=== PATIENT | female | born 1970 | race Caucasian/White ===

== ENCOUNTER 2017-02-21 22:29 | Emergency (ER) | payer MEDICAID ==
[2017-02-21 23:11] LABS: BASOPHILS 0.4 % (0-2); EOSINOPHILS 7.5 % (0-7); HEMATOCRIT 38.9 % (36.0-48.0); HEMOGLOBIN 13.1 g/dL (12-16); IMMATURE GRANULOCYTES 0.1 % (0-5); LYMPHOCYTES 36.9 % (15-50); MCH 32.6 pg (26.0-34.0); MCHC 33.7 g/dL (31.0-37.0); MCV 96.8 fL (80.0-100.0); MEAN PLATELET VOLUME 9.9 fL (7.4-10.4); MONOCYTES 7.6 % (2-11); NEUTROPHILS 47.5 % (40-80); PLATELET COUNT 302 10x3/uL (130-400); RBC 4.02 10x6/uL (4.00-5.40); RDW 12.7 % (11.5-14.5); WBC 6.8 10x3/uL (4.8-10.8)
[2017-02-21 23:26] LABS: ALBUMIN 3.5 g/dL (3.4-5.0); ALKALINE PHOSPHATASE 66 U/L (46-116); ALT (SGPT) 20 U/L (10-68); CALC OSMOLALITY 284 mosm/kg (275-300); CARBON DIOXIDE 24.3 mmol/L (21.0-32.0); CHLORIDE - SERUM 109 mmol/L (98-107); CREATININE - SERUM 0.9 mg/dL (0.6-1.3); GLUCOSE 118 mg/dL (74-106); POTASSIUM - SERUM 3.5 mmol/L (3.5-5.1); PROTEIN - SERUM 7.1 g/dL (6.4-8.2); SODIUM 142 mmol/L (136-145); UREA NITROGEN 16 mg/dL (7-18); eGFR NON AFRICAN AMERICAN 70 mL/min (90-120)
[2017-02-21 23:37] LABS: CKMB 1.1 U/L (0.0-3.6); CREATINE KINASE 173 UL (21-215)
[2017-02-21 23:40] LABS: TROPONIN-I < 0.017 ng/mL (0.000-0.060)
== END 2017-02-22 00:48 | disposition home or self-care (01) ==
LOC: D.ER 22:29
PROVIDERS: Emergency Medicine
DX: R07.9 Chest pain, unspecified (principal); R05 Cough; J45.909 Unspecified asthma, uncomplicated; K21.9 Gastro-esophageal reflux disease without esophagitis; M54.16 Radiculopathy, lumbar region; R00.1 Bradycardia, unspecified

== ENCOUNTER 2017-06-06 23:33 | Emergency (ER) | payer MEDICAID | END 2017-06-07 01:01 | disposition home or self-care (01) | LOC: D.ER 23:33 | DX: J44.1 Chronic obstructive pulmonary disease with (acute) exacerbation (principal) ==

== ENCOUNTER → 2018-04-04 10:05 | Outpatient (CLI) | payer OTHER | END | disposition home or self-care (01) | LOC: D.RT 10:00 | DX: Z02.71 Encounter for disability determination (principal) ==

== ENCOUNTER → 2018-08-17 09:45 | Outpatient (CLI) | payer MEDICAID | END | disposition home or self-care (01) | LOC: D.RT 09:45 | DX: J44.9 Chronic obstructive pulmonary disease, unspecified (principal) ==

== ENCOUNTER → 2019-03-06 17:30 | Outpatient (CLI) | payer MEDICAID ==
[~2019-03-06 17:30] MED LIST: ATIVAN2 MG PO; VISTARIL25 MG PO; VOLTAREN75 MG PO; ZOLOFT100 MG PO; [UNRECOGNIZED DRUG - REMARK]
[2019-03-06 18:49] LABS: BASOPHILS 0.6 % (0-2); EOSINOPHILS 3.7 % (0-7); HEMOGLOBIN 12.5 g/dL (12-16); IMMATURE GRANULOCYTES 0.1 % (0-5); LYMPHOCYTES 23.8 % (15-50); MCH 31.1 pg (26.0-34.0); MCHC 33.8 g/dL (31.0-37.0); MEAN PLATELET VOLUME 10.6 fL (7.4-10.4); MONOCYTES 6.9 % (2-11); NEUTROPHILS 64.9 % (40-80); PLATELET COUNT 331 10x3/uL (130-400); RBC 4.02 10x6/uL (4.00-5.40); RDW 13.8 % (11.5-14.5); WBC 6.8 10x3/uL (4.8-10.8)
== END | disposition home or self-care (01) ==
LOC: D.LABREF 17:30
PROVIDERS: ATTEND Internal Medicine Pulmonary Disease
DX: J44.9 Chronic obstructive pulmonary disease, unspecified (principal)

== ENCOUNTER 2019-04-07 16:24 | Emergency (ER) | payer MEDICAID ==
[2019-04-07] MEDS ORDERED: [UNRECOGNIZED DRUG - REMARK] (16:33)
[2019-04-07] MEDS ORDERED: ZOLOFT100 MG PO (16:34)
[2019-04-07] MEDS ORDERED: ATIVAN2 MG PO (16:34)
[2019-04-07] MEDS ORDERED: VISTARIL25 MG PO (17:08)
[2019-04-07] MEDS ORDERED: VOLTAREN75 MG PO (17:08)
[2019-04-07 18:10] VITALS: BP 114/54
== END 2019-04-07 18:11 | disposition home or self-care (01) ==
LOC: D.ER 16:24
DX: F41.9 Anxiety disorder, unspecified (principal); M54.5 Low back pain; M54.30 Sciatica, unspecified side

== ENCOUNTER 2019-06-11 10:47 | Inpatient (IN) | payer MEDICAID ==
[2019-06-11] VITALS (13 sets, daily range): BP systolic 92–145; BP diastolic 54–98; BMI 27.7
[~2019-06-11] VITALS: Ht 144.8 cm; Wt 54.5 kg
[2019-06-11 11:54] LABS: CALC OSMOLALITY 289 mosm/kg (275-300); CALCIUM 9.4 mg/dL (8.5-10.1); CARBON DIOXIDE 28.3 mmol/L (21.0-32.0); CHLORIDE - SERUM 107 mmol/L (98-107); CREATININE - SERUM 1.1 mg/dL (0.6-1.3); GLUCOSE 136 mg/dL (74-106); SODIUM 143 mmol/L (136-145); UREA NITROGEN 22 mg/dL (7-18); eGFR NON AFRICAN AMERICAN 55 mL/min (90-120)
[2019-06-11 12:07] LABS: BASOPHILS 0.1 % (0-2); EOSINOPHILS 0.6 % (0-7); HEMATOCRIT 42.3 % (36.0-48.0); HEMOGLOBIN 13.4 g/dL (12-16); IMMATURE GRANULOCYTES 0.3 % (0-5); LYMPHOCYTES 4.8 % (15-50); MCH 31.3 pg (26.0-34.0); MCHC 31.7 g/dL (31.0-37.0); MCV 98.8 fL (80.0-100.0); MEAN PLATELET VOLUME 9.9 fL (7.4-10.4); MONOCYTES 5.7 % (2-11); NEUTROPHILS 88.5 % (40-80); PLATELET COUNT 292 10x3/uL (130-400); RBC 4.28 10x6/uL (4.00-5.40); RDW 13.5 % (11.5-14.5); WBC 15.6 10x3/uL (4.8-10.8)
[2019-06-11 12:12] LABS: ALBUMIN 3.8 g/dL (3.4-5.0); ALKALINE PHOSPHATASE 80 U/L (46-116); ALT (SGPT) 26 U/L (10-68); BILIRUBIN - TOTAL 0.29 mg/dL (0.2-1.3); CKMB 3.3 U/L (0.0-3.6); CREATINE KINASE 216 UL (21-215); MAGNESIUM - SERUM 2.3 mg/dL (1.8-2.4); PROTEIN - SERUM 6.9 g/dL (6.4-8.2); THYROID STIMULATING HORMONE 1.76 uIU/mL (0.36-3.74); TROPONIN-I 0.031 ng/mL (0.000-0.060)
[2019-06-11 12:17] LABS: APTT 27.1 SECONDS (22.8-39.4)
[2019-06-11 12:21] LABS: PROTIME 12.7 SECONDS (11.6-15.0)
[2019-06-11 12:29] LABS: APPEARANCE CLEAR (CLEAR); BILIRUBIN NEGATIVE (NEGATIVE); COLOR STRAW (YELLOW); GLUCOSE 1000 mg/dL (NEGATIVE); KETONE NEGATIVE (NEGATIVE); NITRITE NEGATIVE (NEGATIVE); PROTEIN 1+ mg/dL (NEGATIVE); UROBILINOGEN NORMAL (NORMAL)
[2019-06-11 12:33] LABS: UDS - AMPHET NEGATIVE QUAL (NEGATIVE); UDS - BARB NEGATIVE QUAL (NEGATIVE); UDS - BENZO NEGATIVE QUAL (NEGATIVE); UDS - COCAINE NEGATIVE QUAL (NEGATIVE); UDS - OPIATE NEGATIVE QUAL (NEGATIVE); UDS - PCP NEGATIVE QUAL (NEGATIVE); UDS - THC NEGATIVE QUAL (NEGATIVE)
[2019-06-11 12:34] LABS: BACTERIA MODERATE /hpf (NEGATIVE); EPITHELIAL CELLS NSEEN /hpf (0-5); RED CELLS - URINE 0-5 /hpf (0-5)
[2019-06-11 12:35] LABS: AMORPHOUS SEDIMENT >1+ /lpf (NONE SEEN)
--- NOTE | 2019-06-11 13:19 | NUR ---
NS BOLUS COMPLETED.
--- NOTE | 2019-06-11 14:45 | NUR ---
PT TO FLOOR FROM ER. IV TO RIGHT HAND NOT WORKING. IV STARTED TO LEFT FOREARM. NS INFUSING. PT VOMITTING. DR SARAVIA ROUNDED. WILL CONTINUE TO MONITOR.
--- NOTE | 2019-06-11 15:59 | NUR ---
PT ATTEMPTED TO TAKE ORAL MEDICATIONS. US TECH IN TO DO ULTRASOUND ON ABD. VSS. WILL CONTINUE TO MONITOR.
--- NOTE | 2019-06-11 17:25 | NUR ---
PT CONTINUES TO COMPLAIN OF NAUSEA. WAS ABLE TO USE THE BEDPAN. DID SPILL SOME URINE ON LINENS. CHANGED. PT CLEANED. VSS. WILL CONTINUE TO MONITOR.
[2019-06-11 19:12] LABS: CKMB 6.5 U/L (0.0-3.6); CREATINE KINASE 279 UL (21-215); TROPONIN-I 0.053 ng/mL (0.000-0.060)
--- NOTE | 2019-06-11 19:30 | NUR ---
PT AROUSES EASILY, VOICES NEEDS, LUNGS CLEAR, O2 @ 2L VIA N/C, LEFT PIV INTACT WITH NS @ 100 CC/HR, NO C/O @ THIS TIME, VITALS STABLE
--- NOTE | 2019-06-11 21:30 | NUR ---
RESTING QUIETLY WITH EYES CLOSED, WILL CONT TO MONITOR
--- NOTE | 2019-06-11 23:15 | NUR ---
PT SLEEPING ON RIGHT SIDE, AROUSES EASILY, C/O HEADACHE, OFFERED TYLENOL, NO DISTRESS NOTED
[2019-06-12] VITALS (13 sets, daily range): BP systolic 96–116; BP diastolic 57–89; Ht 144.8 cm; Wt 54.5 kg
[2019-06-12 00:25] LABS: CKMB 4.9 U/L (0.0-3.6); CREATINE KINASE 239 UL (21-215); TROPONIN-I 0.017 ng/mL (0.000-0.060)
--- NOTE | 2019-06-12 01:15 | NUR ---
PT C/O HEADACHE, GIVEN TYLENOL PO, VITALS STABLE
--- NOTE | 2019-06-12 03:00 | NUR ---
PT RESTING QUIETLY, AROUSES EASILY WITH NO DISTRESS, VITALS STABLE
[2019-06-12 05:29] LABS: BASOPHILS 0 % (0-2); EOSINOPHILS 0 % (0-7); HEMATOCRIT 36.1 % (36.0-48.0); HEMOGLOBIN 11.7 g/dL (12-16); IMMATURE GRANULOCYTES 0.1 % (0-5); LYMPHOCYTES 7.4 % (15-50); MCH 30.9 pg (26.0-34.0); MCHC 32.4 g/dL (31.0-37.0); MEAN PLATELET VOLUME 9.6 fL (7.4-10.4); MONOCYTES 0.7 % (2-11); NEUTROPHILS 91.8 % (40-80); PLATELET COUNT 267 10x3/uL (130-400); RBC 3.79 10x6/uL (4.00-5.40); RDW 13.4 % (11.5-14.5)
--- NOTE | 2019-06-12 05:30 | NUR ---
PT AROUSES EASILY WITH NO C/O, VITALS STABLE, WILL CONT TO MONITOR
[2019-06-12 05:48] LABS: MCV 95.3 fL (80.0-100.0)
[2019-06-12 06:12] LABS: ALBUMIN 3.2 g/dL (3.4-5.0); ALKALINE PHOSPHATASE 68 U/L (46-116); ALT (SGPT) 29 U/L (10-68); BILIRUBIN - TOTAL 0.22 mg/dL (0.2-1.3); CALC OSMOLALITY 289 mosm/kg (275-300); CALCIUM 8.3 mg/dL (8.5-10.1); CARBON DIOXIDE 22.8 mmol/L (21.0-32.0); CHLORIDE - SERUM 110 mmol/L (98-107); CKMB 4.8 U/L (0.0-3.6); CREATINE KINASE 234 UL (21-215); CREATININE - SERUM 0.9 mg/dL (0.6-1.3); GLUCOSE 156 mg/dL (74-106); MAGNESIUM - SERUM 1.8 mg/dL (1.8-2.4); POTASSIUM - SERUM 4.1 mmol/L (3.5-5.1); PROTEIN - SERUM 6.7 g/dL (6.4-8.2); SODIUM 143 mmol/L (136-145); UREA NITROGEN 17 mg/dL (7-18); eGFR NON AFRICAN AMERICAN 70 mL/min (90-120)
[2019-06-12 06:15] LABS: TROPONIN-I < 0.017 ng/mL (0.000-0.060)
--- NOTE | 2019-06-12 07:00 | NUR ---
REPORT RECIEVED. ASSESSMENT COMPLETE PER FLOW SHEET. VSS. NO NEW CHANGES PT RESTING COMFORTABLY WILL CONTINUE TO MONITOR
--- NOTE | 2019-06-12 09:15 | NUR ---
dr blackwood at bedside new orders recieved
--- NOTE | 2019-06-12 11:43 | NUR ---
PT/OT AT BEDSIDE GIVEN UDPATE
--- NOTE | 2019-06-12 16:27 | NUR ---
report given to marly singh on transfer
--- NOTE | 2019-06-12 17:10 | NUR ---
RECIEVED PT FROM ICU. PT HAS A R AC PIV INFUSING NS @ 75 AND SECONDARY ANTIBIOTICS INFUSING AT THIS TIME. PT IS SITTING UP EATTING DINNER. RR EVEN AND UNLBAORED. BED LOCKED AND IN LOWEST POSITION, CALL LIGHT WITHIN REACH. WILL CTM
--- NOTE | 2019-06-12 19:00 | NUR ---
EVENING ROUNDS COMPLETE. PT LAYING IN BED. NO SIGNS OF DISTRESS. AAOX4. PT DENIES ANY NEEDS AT THIS TIME. CL IN REACH, BED IN LOWEST POSITION.
--- NOTE | 2019-06-12 19:37 | MORECARE ---
CASE MANAGEMENT DISCHARGE SUMMARY PATIENT: CHRISTIANO STINSON UNIT: [id number] ADM DATE: 06/11/19 AGE: 49 : 66 SEX: F ROOM/BED: D.2104 AUTHOR: SHIMA TORRE PHYSICIAN: REFERRING PHYSICIAN: VITOR SARAVIA MD DATE OF SERVICE: 06/12/19 Discharge Plan Patient Name: CHRISTIANO STINSON Facility: [facility]:[place] : 1970 Planned Disposition: Home Anticipated Discharge Date: Discharge Date: Expected LOS: Initial Reviewer: [email or web address] Initial Review Date: 06/12/2019 Generated: 06/12/19 8:36 pm Patient Name: CHRISTIANO STINSON Page [id number] at 1937 All edits/amendments must be made on the electronic document DICTATION DATE: 06/12/191935 SERVICES EXECUTIVE: ALVERTO 06/12/191935 RPT#: [id number] DC DATE: STATUS: ADM IN [facility] [address] [place] [address] END OF REPORT
--- NOTE | 2019-06-12 19:44 | MORECARE ---
CASE MANAGEMENT DISCHARGE SUMMARY PATIENT: CHRISTIANO STINSON UNIT: [id number] ADM DATE: 06/11/19 AGE: 49 : 66 SEX: F ROOM/BED: D.9618 AUTHOR: YELITZA,DOC PHYSICIAN: REFERRING PHYSICIAN: VITOR SARAVIA MD DATE OF SERVICE: 06/12/19 Discharge Plan Patient Name: CHRISTIANO STINSON Facility: [facility]:[place] : 1970 Planned Disposition: Home Anticipated Discharge Date: Discharge Date: Expected LOS: Initial Reviewer: [id number] Initial Review Date: 06/12/2019 Generated: 06/12/19 8:43 pm Comments DCP- Discharge Planning Updated by [email or web address]: Nely Lagunas on 06/12/19 6:[address] Patient Name: CHRISTIANO STINSON Admission Status: ER Accout number: [id number] Admission Date: 06-11-2019 : 1970 Admission Diagnosis: Attending: MANJIT, Current LOS: 1 Anticipated DC Date: Planned Disposition: Home Primary Insurance: [place] PRIVATE OPTIONS [place] Discharge Planning Comments: CM met with patient to complete initial dc planning assessment. CM educated patient on the CM role and verbal consent given by patient to complete assessment. Patient lives at home with her fianc? where she is independent with her care. At discharge patient plans to return home and feels this is a safe discharge. CM discussed availability of home health, rehab services, and medical equipment. Her family will drive her home upon discharge. Patient has a nebulizer and home o2 ( [place]e home patient ) Patient denied known discharge needs at this time. CM will continue to follow and will assist as needed with dc plans/needs. Weighmaster Lead: Nely Lagunas DCPIA - Discharge Planning Initial Assessment Updated by [email or web address]: Nely Lagunas on 06/12/19 7:37 pm * Is the patient Alert and Oriented? Yes * How many steps to enter\exit or inside your home? * PCP CALIXTO * Pharmacy [facility] * Preadmission Environment Home with Family * ADLs Independent * Other Equipment NEBULIZER, HOME & PORTABLE 02 * List name and contact numbers for known caregivers / representatives who currently or will assist patient after discharge: PATSY MORRO - [facility] - [phone] MARYBETHSOFIA MONTEJO [facility]- [phone] REYNALDO HOOKER - [facility] - [phone] HARV[facility]ER [facility] - NO PHONE * Verbal permission to speak to the caregivers and representatives has been obtained from the patient. Yes * Community resources currently utilized None * Additional services required to return to the preadmission environment? No * Can the patient safely return to the preadmission environment? Yes * Has this patient been hospitalized within the prior 30 days at any hospital? No Last DP export: 06/12/19 6:37 Patient Name: CHRISTIANO STINSON Page [phone] at 1944 All edits/amendments must be made on the electronic document DICTATION DATE: 06/12/191942 EDGER MACHINE SETTER: ALVERTO 06/12/191942 RPT#: [id number] DC DATE: STATUS: ADM IN [facility] [address] [place] [address] END OF REPORT
--- NOTE | 2019-06-12 22:38 | NUR ---
PT IV TO L FOREARM INFILTRATED. REMOVED, TIP INTACT. NEW 20 G PIV STARTED IN R FOREARM AT THIS TIME. PT TOLERATED WELL. CL IN REACH, BED IN LOWEST POSITION.
[2019-06-13] VITALS: BP 122/80
[2019-06-13 04:00] VITALS: BP 105/65
[2019-06-13 04:26] LABS: BASOPHILS 0 % (0-2); EOSINOPHILS 0 % (0-7); HEMATOCRIT 35.8 % (36.0-48.0); HEMOGLOBIN 11.2 g/dL (12-16); IMMATURE GRANULOCYTES 0.3 % (0-5); LYMPHOCYTES 6.8 % (15-50); MCH 30.4 pg (26.0-34.0); MCHC 31.3 g/dL (31.0-37.0); MEAN PLATELET VOLUME 10.3 fL (7.4-10.4); MONOCYTES 3.4 % (2-11); NEUTROPHILS 89.5 % (40-80); PLATELET COUNT 301 10x3/uL (130-400); RBC 3.69 10x6/uL (4.00-5.40); RDW 13.8 % (11.5-14.5)
[2019-06-13 04:57] LABS: ALBUMIN 3.2 g/dL (3.4-5.0); ALKALINE PHOSPHATASE 63 U/L (46-116); ALT (SGPT) 30 U/L (10-68); BILIRUBIN - TOTAL 0.28 mg/dL (0.2-1.3); CALC OSMOLALITY 288 mosm/kg (275-300); CALCIUM 8.5 mg/dL (8.5-10.1); CARBON DIOXIDE 27.7 mmol/L (21.0-32.0); CHLORIDE - SERUM 110 mmol/L (98-107); CREATININE - SERUM 0.8 mg/dL (0.6-1.3); GLUCOSE 131 mg/dL (74-106); MAGNESIUM - SERUM 1.9 mg/dL (1.8-2.4); POTASSIUM - SERUM 4.3 mmol/L (3.5-5.1); PROTEIN - SERUM 6.6 g/dL (6.4-8.2); SODIUM 144 mmol/L (136-145); eGFR NON AFRICAN AMERICAN 80 mL/min (90-120)
[2019-06-13 05:08] LABS: UREA NITROGEN 12 mg/dL (7-18)
--- NOTE | 2019-06-13 07:59 | NUR ---
REPORT RECEIVED. WILL CONTINUE WITH POC. PT CURRENTLY RESTING ON RIGHT SIDE. CALL LIGHT W/I REACH. RR EVEN AND UNLABORED ON 2L 02. NS INFUSING @75ML/HR VIA R.FOR PIV. NO S/S OF DISTRESS NOTED. PT DENIES ANY NEEDS. WILL CTM.
[2019-06-13 09:18] VITALS: BP 117/68
--- NOTE | 2019-06-13 11:44 | NUR ---
OT NOTE: REPORTS IMPROVEMENT WITH HEADACHE. BED MOB WITH SPV; ABLE TO FLOYD GOWN WITH SET UP; SIMPLE GROOMING WITH SET UP; ABLE TO FLOYD SOCKS WITH MIN ASSIST; TOILETING WITH MIN ASSIST. AMB WITH MIN ASSIST AND ASSIST FOR 02 AND IV POLE. PT AMB APPROX 60-70 FT. REPORTED THAT SHE WAS GETTING DIZZY MIDWAY IN WALK. ENCOURAGED TO TAKE SLOW DEEP BREATHS. REQUIRED 2 STANDING REST BREAKS DURING AMBULATION. INCREASED SOB WHILE WALKING. UP IN CHAIR WITH CGA. EDUCATED ON EXS TO PERFORM WHILE UP IN CHAIR TO ASSIST WITH FUNCTIONAL ENDURANCE. CRESCENCIO CARPENTER, OTR/L
[2019-06-13 12:00] VITALS: BP 111/65
[2019-06-13] MEDS ORDERED: ALBUTEROL SULF8.5 GM INH (14:17)
[2019-06-13] MEDS ORDERED: IPRAT-ALBUT 0.5-3 ML UPD (14:17)
--- NOTE | 2019-06-13 15:21 | NUR ---
PREVIOUS PIV INFILTRATED. REMOVED PIV WITH CATHETER TIP FULLY INTACT. INITIATED NEW PIV TO THE RIGHT FOREARM 22GA X1 ATTEMPT. PT TOLERATED WELL. FLUSHED WITH 10ML NS TO CONFIRM PATENCY. BEGAN INFUSION OF ABX. WILL CTM.
--- NOTE | 2019-06-13 15:57 | NUR ---
I have reviewed this patient and I concur with the Shift Assessment completed by the Licensed Practical Nurse today this shift.
[2019-06-13 18:04] VITALS: BP 123/75
[2019-06-13 20:00] VITALS: BP 113/65
--- NOTE | 2019-06-13 20:00 | NUR ---
PT RESTING IN BED ALERT AND ORIENTED X4. RR EVEN AND UNLABORED. PT ON 2L O2 @ 94%. NO S/S OF DISTRESS AT THIS TIME. PT DENIES ANY PAIN OR NEEDS AT THIS TIME. BED LOW CALL LIGHT WITHIN REACH. WILL CONTINUE TO MONITOR.
[2019-06-14] VITALS: BP 144/88
--- NOTE | 2019-06-14 02:53 | NUR ---
PT RESTING IN BED WITH EYES CLOSED. RR EVEN AND UNLABORED. BED LOW CALL LIGHT WITHIN REACH. WILL CONTINUE TO MONITOR.
[2019-06-14 04:00] VITALS: BP 123/77
[2019-06-14 04:54] LABS: ALBUMIN 3.1 g/dL (3.4-5.0); ANION GAP 8.4 mmol/L (8-16); BILIRUBIN - TOTAL 0.22 mg/dL (0.2-1.3); CALCIUM 8.6 mg/dL (8.5-10.1); CARBON DIOXIDE 29.8 mmol/L (21.0-32.0); CREATININE - SERUM 0.9 mg/dL (0.6-1.3); MAGNESIUM - SERUM 1.9 mg/dL (1.8-2.4); POTASSIUM - SERUM 4.2 mmol/L (3.5-5.1); PROTEIN - SERUM 6.5 g/dL (6.4-8.2)
[2019-06-14 04:59] LABS: BASOPHILS 0 % (0-2); EOSINOPHILS 0 % (0-7); HEMATOCRIT 34.2 % (36.0-48.0); HEMOGLOBIN 10.8 g/dL (12-16); IMMATURE GRANULOCYTES 0.3 % (0-5); LYMPHOCYTES 8.1 % (15-50); MCH 30.8 pg (26.0-34.0); MCHC 31.6 g/dL (31.0-37.0); MCV 97.4 fL (80.0-100.0); MEAN PLATELET VOLUME 10.6 fL (7.4-10.4); MONOCYTES 3.5 % (2-11); NEUTROPHILS 88.1 % (40-80); PLATELET COUNT 289 10x3/uL (130-400); RBC 3.51 10x6/uL (4.00-5.40); RDW 13.7 % (11.5-14.5); WBC 8.6 10x3/uL (4.8-10.8)
--- NOTE | 2019-06-14 07:45 | NUR ---
PT RESTING IN BED WITH EYES CLOSED. RESP EVEN AND UNLABORED AT THIS TIME. O2 @ 2L NC IN PLACE. PT REPORTS PAIN 4/10 AT THIS TIME. IV TO RIGHT FOREARM WITH NS @ 75ML/HR INFUSING VIA PUMP. SITE WITHOUT REDNESS/EDEMA. DENIES FURTHER NEEDS AT THIS TIME. CL WITHIN REACH. ENCOURAGED TO CALL WITH NEEDS. CONTINUE POC
[2019-06-14] MEDS ORDERED: ASPIRIN325 MG PO (12:09)
[2019-06-14] MEDS ORDERED: CHRONULAC30 ML PO (12:09)
[2019-06-14] MEDS ORDERED: MUCINEX600 MG PO (12:10)
[2019-06-14] MEDS ORDERED: PREDNISONE20 MG PO (12:10)
--- NOTE | 2019-06-14 12:50 | NUR ---
UPON ADMIT, PATIENT HAS NOT HAD A FLU SHOT THIS YEAR. SHE STATES THAT SHE WILL CHECK WITH HER PRIMARY ON THIS. I ASKED HER IF SHE WEARS OXYGEN ALL THE TIME AND SHE REPLIED, "ALMOST YES". I ASKED HER IF HER FAMILY WILL BRING HER PORTABLE FROM HOME UPON DISCHARGE. SHE SAID,"THEY ARE COMING FROM WORK AND I LIVE IN [facility]". SHE GAVE ME HER SON'S NUMBER (RORY) AND I LEFT A VOICE MAIL ON HIS CELL PHONE TELLING HIM THAT HE NEEDS TO BRING HER PROTABLE.
[2019-06-14 13:28] VITALS: BP 133/75
--- NOTE | 2019-06-14 13:38 | NUR ---
PT DISCHARGE INSTRUCTIONS PROVIDED WITH EDUCATION MATERIAL. DISCUSSED MEDICATIONS TO CONTINUE AND NEW MEDICATIONS PRESCRIBED. ASSISTED PT WITH CONTACTING [employer] COMPANY USED WITH HOME O2 TO OBTAIN PORTABLE O2 TANK TO TRANSPORT HOME. THEY INFORMED STAFF THAT THEY WOULD HAVE PORTABLE TANK TO HOSPITAL IN THE HOUR. IV TO RIGHT FOREARM DISCONTINUED CATH INTACT. PT AWAITING TRANSPORTATION HOME
--- NOTE | 2019-06-14 16:00 | NUR ---
PT FAMILY ARRIVED. PT TAKEN OUT VIA W/C TO PRIVATE VEHICLE WITH O2 IN PLACE AND ALL PERSONAL BELONGINGS.
--- NOTE | 2019-06-15 11:35 | MORECARE ---
CASE MANAGEMENT DISCHARGE SUMMARY PATIENT: CHRISTIANO STINSON UNIT: [id number] ADM DATE: 06/11/19 AGE: 49 : 66 SEX: F ROOM/BED: D.2108 AUTHOR: YELITZA,DOC PHYSICIAN: REFERRING PHYSICIAN: VITOR SARAVIA MD DATE OF SERVICE: 06/15/19 Discharge Plan Patient Name: CHRISTIANO STINSON Facility: [facility]:[place] : 1970 Planned Disposition: Home Anticipated Discharge Date: Discharge Date: 06/14/2019 Expected LOS: Initial Reviewer: [email or web address] Initial Review Date: 06/12/2019 Generated: 06/15/19 12:34 pm DCP- Discharge Planning Updated by [id number]: Nely Lagunas on 06/12/19 6:[address] Patient Name: CHRISTIANO STINSON Admission Status: ER Accout number: [id number] Admission Date: 06-11-2019 : 1970 Admission Diagnosis: Attending: MANJIT, Current LOS: 1 Anticipated DC Date: Planned Disposition: Home Primary Insurance: [place] PRIVATE OPTIONS [place] Discharge Planning Comments: CM met with patient to complete initial dc planning assessment. CM educated patient on the CM role and verbal consent given by patient to complete assessment. Patient lives at home with her fianc? where she is independent with her care. At discharge patient plans to return home and feels this is a safe discharge. CM discussed availability of home health, rehab services, and medical equipment. Her family will drive her home upon discharge. Patient has a nebulizer and home o2 ( [place] home patient ) Patient denied known discharge needs at this time. CM will continue to follow and will assist as needed with dc plans/needs. Cashier Credit: Nely Lagunas DCPIA - Discharge Planning Initial Assessment Updated by [id number]: Nely Lagunas on 06/12/19 7:37 pm * Is the patient Alert and Oriented? Yes * How many steps to enter\exit or inside your home? * PCP CALIXTO * Pharmacy [facility] * Preadmission Environment Home with Family * ADLs Independent * Other Equipment NEBULIZER, HOME & PORTABLE 02 * List name and contact numbers for known caregivers / representatives who currently or will assist patient after discharge: PATSY HOOKER - [facility] - [phone] MARYBETH MONTEJO [facility]- [phone] REYNALDO HOOKER MARY - [phone] [facility] - NO PHONE * Verbal permission to speak to the caregivers and representatives has been obtained from the patient. Yes * Community resources currently utilized None * Additional services required to return to the preadmission environment? No * Can the patient safely return to the preadmission environment? Yes * Has this patient been hospitalized within the prior 30 days at any hospital? No Last DP export: 06/12/19 6:44 Patient Name: CHRISTIANO STINSON Page 27685 at 1135 All edits/amendments must be made on the electronic document DICTATION DATE: 06/15/19 1134 CAREER RESOURCE TECHNICIAN: ALVERTO 06/15/19 1134 RPT#: [id number] DC DATE:06/14/19 [facility] [address] [place] [address] END OF REPORT
--- NOTE | 2019-06-15 14:14 | NUR ---
OT NOTE: (LATE ENTRY FOR 06/14/19)..PERFORMED BED MOB WITH SPV; AMB TO BATHROOM TO PERFORM TOILETING WITH SBA; CLOTHING MGMT WITH SPV; AMB APPROX 75-100 FT WITH WALKER AND CGA. PT REPORTED THAT SHE WAS DIZZY BUT NO SOB NOTED. 02 AT 3 L. CRESCENCIO CARPENTER, OTR/L
== END 2019-06-14 16:10 | disposition home or self-care (01) | DRG 189 ==
LOC: D.ER 10:47 → D.ICU 13:05 → D.M2 13:05
PROVIDERS: Family Medicine; ADMIT Family Medicine; ATTEND Family Medicine
DX: J96.21 Acute and chronic respiratory failure with hypoxia (principal); J44.1 Chronic obstructive pulmonary disease with (acute) exacerbation; E72.20 Disorder of urea cycle metabolism, unspecified; K72.90 Hepatic failure, unspecified without coma; R55 Syncope and collapse; T68.XXXA Hypothermia, initial encounter; I08.1 Rheumatic disorders of both mitral and tricuspid valves

== ENCOUNTER 2020-01-07 17:07 | Inpatient (IN) | payer MEDICAID ==
[~2020-01-07] VITALS: Ht 144.8 cm; Wt 60.9 kg
[~2020-01-07 17:07] MED LIST changes: +ALBUTEROL SULF8.5 GM INH; +ASPIRIN325 MG PO; +CHRONULAC30 ML PO; +IPRAT-ALBUT 0.5-3 ML UPD; +MUCINEX600 MG PO; +PREDNISONE20 MG PO
[2020-01-07 18:14] VITALS: BP 159/69; Ht 144.8 cm; Wt 60.9 kg
[2020-01-07 20:00] VITALS: BP 119/70
--- NOTE | 2020-01-07 20:20 | NUR ---
LYING SUPINE IN BED. ALERT AND ORIENTED X4. RESP NONLABORED. O2 @ 2L/NC. WEARS O2 AT HOME. CHRONIC NONPROD COUGH REPORTED. BRUISES NOTED TO BLE. REPORTS URGE/STRESS INCONTINENCE. 22G INSERTED IN LT HAND AFTER ATTEMPT X1. PT HERMES WELL. SCDS PLACED ON PT. AMBULATORY WITH STANDBY ASSIST. SR ELEVATED X2. CL IN REACH. C/O PAIN IN BACK RATING 8. NOTIFIED PHARMACY OF NEED TO VERIFY MED ORDERS.
--- NOTE | 2020-01-07 22:02 | NUR ---
TRANSIT MIXER OPERATOR INITIATED AT THIS TIME AFTER CALLING PHARMACY SEVERAL TIMES TO PLACE AND VERIFY ORDERS. EDUCATED PT ON USE AND SHE VERBALIZED UNDERSTANDING. SR ELEVATED X2. CL IN REACH. ENCOURAGED USE OF I.S. AND SHE VERBALIZED UNDERSTANDING. O2 @ 2L/NC.
--- NOTE | 2020-01-08 02:06 | NUR ---
AWAKE. LYING ON LT SIDE IN BED. STATES PUBLIC SPEAKER HAS HELPED. NO DISTRESS. CL IN RECH.
[2020-01-08 04:00] VITALS: BP 103/61
[2020-01-08 08:00] VITALS: BP 108/63
[2020-01-08 12:00] VITALS: BP 112/72
[2020-01-08 12:04] LABS: BASOPHILS 0 % (0-2); EOSINOPHILS 0 % (0-7); HEMATOCRIT 35.3 % (36.0-48.0); HEMOGLOBIN 11.1 g/dL (12-16); IMMATURE GRANULOCYTES 0.1 % (0-5); MCH 29.6 pg (26.0-34.0); MCHC 31.4 g/dL (31.0-37.0); MCV 94.1 fL (80.0-100.0); MEAN PLATELET VOLUME 8.9 fL (7.4-10.4); MONOCYTES 1.3 % (2-11); NEUTROPHILS 92.6 % (40-80); RBC 3.75 10x6/uL (4.00-5.40); RDW 13.8 % (11.5-14.5); WBC 6.8 10x3/uL (4.8-10.8)
[2020-01-08 12:09] LABS: PLATELET COUNT 395 10x3/uL (130-400)
[2020-01-08 12:10] LABS: CALC OSMOLALITY 283 mosm/kg (275-300); CALCIUM 9.4 mg/dL (8.5-10.1); CARBON DIOXIDE 24.5 mmol/L (21.0-32.0); CHLORIDE - SERUM 105 mmol/L (98-107); CREATININE - SERUM 0.7 mg/dL (0.6-1.3); GLUCOSE 138 mg/dL (74-106); POTASSIUM - SERUM 4.1 mmol/L (3.5-5.1); SODIUM 139 mmol/L (136-145); UREA NITROGEN 23 mg/dL (7-18); eGFR NON AFRICAN AMERICAN > 90 mL/min (90-120)
[2020-01-08 16:00] VITALS: BP 104/69
--- NOTE | 2020-01-08 19:40 | NUR ---
LYING IN BED. ALERT AND ORIENTED X4. RESP IRREG. O2 @ 2L/NC. NAUSEATED. SCDS IN USE BILAT. NS @ 30 INFUSING WITH MORPHINE GENERAL PASSENGER AGENT IN RT HAND. RATES PAIN IN BACK 7. INSTRUCTED OF NPO AFTER MIDNIGHT AND SHE VERBALIZED UNDERSTANDING. SR ELEVATED X2. CL IN REACH.
--- NOTE | 2020-01-08 19:49 | NUR ---
PATIENT IN BED WITH IV INTACT. NO COMPLAINTS. HAS BEEN NAUSEATED AND VOMITTING TODAY. GAVE ZOFRAN ORDERED. NO OTHER COMPLAINTS AT THIS TIME. SCDS OFF AT THIS TIME. EXPLAINED NPO Skip DODSON. CALL LIGHT WITHIN REACH.
--- NOTE | 2020-01-08 23:00 | NUR ---
MEDICATED WITH ZOFRAN FOR C/O NAUSEA. CL IN REACH.
[2020-01-09] VITALS (8 sets, daily range): BP systolic 94–136; BP diastolic 56–94
--- NOTE | 2020-01-09 05:49 | NUR ---
ATTEMPTED X2 TO START 2OG IV WITHOUT SUCCESS PER EMANUEL OROURKE. PT HAS HAD HIBACLENS BATH AND REPORTS DIARRHEA THIS AM.
--- NOTE | 2020-01-09 07:45 | NUR ---
ALERT AND ORIENTED. LUNGS CLEAR BILATERALLY. HEART SOUNDS S1 AND S2 HEARD IN ALL MESSER. BOWEL SOUNDS ACTIVE X 4. IV TO RIGHT HAND PATENT WITHOUT REDNESS. DENIES NEEDS. BED LOW. CALL LUJAN AND PERSONAL ITEMS IN REACH. WILL CONTINUE TO MONITOR.
[2020-01-09 08:30] LABS: ALBUMIN 3.4 g/dL (3.4-5.0); ALKALINE PHOSPHATASE 62 U/L (30-120); ALT (SGPT) 23 U/L (10-68); BILIRUBIN - TOTAL 0.27 mg/dL (0.2-1.3); CALC OSMOLALITY 282 mosm/kg (275-300); CALCIUM 9.1 mg/dL (8.5-10.1); CARBON DIOXIDE 23.3 mmol/L (21.0-32.0); CHLORIDE - SERUM 105 mmol/L (98-107); CREATININE - SERUM 0.8 mg/dL (0.6-1.3); GLUCOSE 159 mg/dL (74-106); POTASSIUM - SERUM 3.6 mmol/L (3.5-5.1); PROTEIN - SERUM 6.9 g/dL (6.4-8.2); SODIUM 138 mmol/L (136-145); UREA NITROGEN 25 mg/dL (7-18); eGFR NON AFRICAN AMERICAN 80 mL/min (90-120)
[2020-01-09 09:06] LABS: BASOPHILS 0 % (0-2); EOSINOPHILS 0 % (0-7); HEMATOCRIT 34.2 % (36.0-48.0); HEMOGLOBIN 10.9 g/dL (12-16); IMMATURE GRANULOCYTES 0.2 % (0-5); LYMPHOCYTES 2.9 % (15-50); MCH 29.9 pg (26.0-34.0); MCHC 31.9 g/dL (31.0-37.0); MEAN PLATELET VOLUME 8.9 fL (7.4-10.4); NEUTROPHILS 91.9 % (40-80); PLATELET COUNT 423 10x3/uL (130-400); RBC 3.64 10x6/uL (4.00-5.40); RDW 13.7 % (11.5-14.5)
[2020-01-09 09:11] LABS: WBC 13.6 10x3/uL (4.8-10.8)
--- NOTE | 2020-01-09 11:39 | NUR ---
THREE SILVER COLORED RINGS PLACED IN BIOHAZARD BAG AND IN PATIENT'S TOP DRAWER OF BEDSIDE TABLE PER REQUEST.
--- NOTE | 2020-01-09 14:09 | NUR ---
PATIENT RETURNED FROM PROCEDURE. VITALS STABLE. RODOLFO C/D/I.
--- NOTE | 2020-01-09 14:27 | NUR ---
IV OCCLUDED TO RIGHT WRIST. REMOVED WITH TIP INTACT ATTEMPTED TO RESTART TWICE WITH 22 GAUGE WITHOUT SUCCESS. WILL HAVE SECOND NURSE ATTEMPT.
--- NOTE | 2020-01-09 14:30 | NUR ---
SPOKE WITH VASCULAR ACCESS NURSE AVELINO WHO STATES WILL COME PLACE IV
--- NOTE | 2020-01-09 15:03 | NUR ---
SPOKE WITH IRAIDA WOODALL TO NOTIFY THAT PATIENT HAVING DIARRHEA AND THINKS IS RELATED TO MORPHINE. STATES DC MORPHINE GEOMETRICIAN. ADD MORPHINE 2MG IV Q4HPRN. ADD NORCO 5/325MG PO Q4PRN. STATES GIVE ONE TIME DOSE IMODIUM 2MG PO NOW. ORDERS PLACED.
--- NOTE | 2020-01-09 15:04 | NUR ---
UNIX SYSTEM ADMINISTRATOR DC PER ORDER.
--- NOTE | 2020-01-09 17:21 | NUR ---
PATIENT SLEEPING. VITALS REMAIN STABLE.
--- NOTE | 2020-01-09 19:40 | NUR ---
PT STATES PAIN 01/21, GAVE NORCO ORDERED. DENIES OTHER NEEDS, WILL CTM
--- NOTE | 2020-01-09 21:45 | NUR ---
PT STATES PAIN 02/20, GAVE MORPHINE AND ZOFRAN. DENIES OTHER NEEDS
[2020-01-10] VITALS: BP 91/54
--- NOTE | 2020-01-10 03:30 | NUR ---
ASSISTED PT TO BATHROOM AND BACK TO BED, TOLERATED WELL. WILL CTM
[2020-01-10 04:00] VITALS: BP 91/47
[2020-01-10 08:00] VITALS: BP 102/59
--- NOTE | 2020-01-10 08:02 | NUR ---
ALERT AND ORIENTED X4 WITH DRESSING INTACT TO LUMBAR. SCD'S ON AT THIS TIME. ABDOMEN SOFT WITH BOWEL SOUNDS NOTED X4. HRRR NORCO AND MORPHINE GIVEN PRN FOR PAIN WITH PAIN 7/10 AT THIS TIME. STATES IS HAVING REFLUX THIS MORNING. IV TO RT. HAND S/L. ENCOURAGED TO USE CALL LIGHT FOR ASSSIT.
[2020-01-10] MEDS ORDERED: HYDROCODON-ACE1 EA10 PO (08:14)
--- NOTE | 2020-01-10 11:49 | MORECARE ---
CASE MANAGEMENT DISCHARGE SUMMARY PATIENT: CHRISTIANO STINSON UNIT: [id number] ADM DATE: 01/07/20 AGE: 49 : 66 SEX: F ROOM/BED: D.2236 AUTHOR: SHIMA TORRE PHYSICIAN: REFERRING PHYSICIAN: NARGIS LEE MD DATE OF SERVICE: 01/10/20 Discharge Plan Patient Name: CHRISTIANO STINSON Facility: [facility]:[place] : 1970 Planned Disposition: Home Anticipated Discharge Date: Discharge Date: Expected LOS: Initial Reviewer: [email or web address] Initial Review Date: 01/07/2020 Generated: 01/10/20 12:48 pm Comments DCP- Discharge Planning Updated by [email or web address]: Joaquina White on 01/10/20 10:[address] Patient Name: CHRISTIANO STINSON Admission Status: Elective Accout number: [id number] Admission Date: 01-07-2020 : 1970 Admission Diagnosis:DORSALGIA, UNSPECIFIED Attending: YULISA LEE Current LOS: 3 Anticipated DC Date: Planned Disposition: Home Primary Insurance: [place] PRIVATE OPTIONS [place] Discharge Planning Comments: CM met with patient at bedside after explaining CM role and obtaining verbal consent. CM discussed availability / needs of home health, REHAB and medical equipment. PATIENT DENIES ANY DISCHARGE NEEDS. WE ARE TRYING TO GET IN TOUCH WITH SOMEONE TO PICK HER UP. Diplomatic Interpreter/Translator: Joaquina White DCPIA - Discharge Planning Initial Assessment Updated by [id number]: Joaquina White on 01/10/20 11:45 am * Is the patient Alert and Oriented? Yes * PCP MURRAY * Pharmacy [facility] * Preadmission Environment Home with Family * ADLs Independent * Additional services required to return to the preadmission environment? No * Can the patient safely return to the preadmission environment? Yes * Has this patient been hospitalized within the prior 30 days at any hospital? No Patient Name: CHRISTIANO STINSON Page 90050 at 1149 All edits/amendments must be made on the electronic document DICTATION DATE: 01/10/20 1148 FISH HATCHERY SPECIALIST: ALVERTO 01/10/20 1148 RPT#: [id number] DC DATE: STATUS: ADM IN [facility] [address] [facility] [place] [address] END OF REPORT
--- NOTE | 2020-01-10 12:07 | MORECARE ---
CASE MANAGEMENT DISCHARGE SUMMARY PATIENT: CHRISTIANO STINSON UNIT: [id number] ADM DATE: 01/07/20 AGE: 49 : 66 SEX: F ROOM/BED: D.2236 AUTHOR: SHIMA TORRE PHYSICIAN: REFERRING PHYSICIAN: NARGIS LEE MD DATE OF SERVICE: 01/10/20 Discharge Plan Patient Name: CHRISTIANO STINSON Facility: [facility]:[place] : 1970 Planned Disposition: Home Anticipated Discharge Date: Discharge Date: Expected LOS: Initial Reviewer: [email or web address] Initial Review Date: 01/07/2020 Generated: 01/10/20 1:07 pm Comments DCP- Discharge Planning Updated by [email or web address]: Joaquina White on 01/10/20 11:[address] Patient Name: CHRISTIANO STINSON Admission Status: Elective Accout number: [id number] Admission Date: 01-07-2020 : 1970 Admission Diagnosis:DORSALGIA, UNSPECIFIED Attending: YULISA LEE Current LOS: 3 Anticipated DC Date: Planned Disposition: Home Primary Insurance: [place] PRIVATE [employer]IONS [place] Discharge Planning Comments: CM met with patient at bedside after explaining CM role and obtaining verbal consent. CM discussed availability / needs of home health, REHAB and medical equipment. PATIENT DENIES ANY DISCHARGE NEEDS. WE ARE TRYING TO GET IN TOUCH WITH SOMEONE TO PICK HER UP. Adjunct Communications Faculty Member: Joaquina White Appended by Joaquina White on 01/10/2020 12:00 CDT: HER SON WILL BE HERE AROUND 1PM TO FRONT WINDOW CASHIER HIS MOM. DCPIA - Discharge Planning Initial Assessment Updated by [email or web address]: Joaquina White on 01/10/20 11:45 am * Is the patient Alert and Oriented? Yes * PCP BYRON * Pharmacy [facility] * Preadmission Environment Home with Family * ADLs Independent * Additional services required to return to the preadmission environment? No * Can the patient safely return to the preadmission environment? Yes * Has this patient been hospitalized within the prior 30 days at any hospital? No Last DP export: 01/10/20 10:49 a Patient Name: CHRISTIANO STINSON Page 78662 at 1207 All edits/amendments must be made on the electronic document DICTATION DATE: 01/10/201206 WAX MOLDER: ALVERTO 01/10/201206 RPT#: [id number] DC DATE: STATUS: ADM IN [facility] [address] [place] [address] END OF REPORT
--- NOTE | 2020-01-10 13:30 | NUR ---
IV DISCONTINUED AND VERBALIZED UNDERSTANDING OF DISCHARGE INSTRUCTIONS. STABLE AT TIME OF DEPARTURE.
--- NOTE | 2020-01-13 08:32 | MORECARE ---
CASE MANAGEMENT DISCHARGE SUMMARY PATIENT: CHRISTIANO STINSON UNIT: [id number] ADM DATE: 01/07/20 AGE: 49 : 66 SEX: F ROOM/BED: D.2236 AUTHOR: SHIMA TORRE PHYSICIAN: REFERRING PHYSICIAN: NARGIS LEE MD DATE OF SERVICE: 01/13/20 Discharge Plan Patient Name: CHRISTIANO STINSON Facility: [facility]:[place] : 1970 Planned Disposition: Home Anticipated Discharge Date: Discharge Date: 01/10/2020 Expected LOS: Initial Reviewer: [email or web address] Initial Review Date: 01/07/2020 Generated: 01/13/20 9:32 am Comments DCP- Discharge Planning Updated by [email or web address]: Joaquina White on 01/10/20 11:[address] Patient Name: CHRISTIANO STINSON Admission Status: Elective Accout number: [id number] Admission Date: 01-07-2020 : 1970 Admission Diagnosis:DORSALGIA, UNSPECIFIED Attending: YULISA LEE Current LOS: 3 Anticipated DC Date: Planned Disposition: Home Primary Insurance: [place] PRIVATE [employer] [place] Discharge Planning Comments: CM met with patient at bedside after explaining CM role and obtaining verbal consent. CM discussed availability / needs of home health, REHAB and medical equipment. PATIENT DENIES ANY DISCHARGE NEEDS. WE ARE TRYING TO GET IN TOUCH WITH SOMEONE TO PICK HER UP. Supervisor Mold Cleaning [employer] Storage: Joaquina White Appended by Joaquina White on 01/10/2020 12:00 CDT: HER SON WILL BE HERE AROUND 1PM TO WEBLOGIC DEVELOPER HIS MOM. DCPIA - Discharge Planning Initial Assessment Updated by [email or web address]: Joaquina White on 01/10/20 11:45 am * Is the patient Alert and Oriented? Yes * PCP EARP * Pharmacy [facility] * Preadmission Environment Home with Family * ADLs Independent * Additional services required to return to the preadmission environment? No * Can the patient safely return to the preadmission environment? Yes * Has this patient been hospitalized within the prior 30 days at any hospital? No Last DP export: 01/10/20 11:07 a Patient Name: CHRISTIANO STINSON Page 47594 at 0832 All edits/amendments must be made on the electronic document DICTATION DATE: 01/13/20831 CARTOGRAPHY PROFESSOR: ALVERTO 01/13/20831 RPT#: [id number] DC DATE:01/10/20 STATUS: DIS IN [facility] [address] [place] [address] END OF REPORT
--- NOTE | 2020-01-14 10:50 | OP ---
PATIENT NAME: CHRISTIANO STINSON MEDICAL RECORD: [id number] :66 LOCATION:[id number] ADMISSION DATE:01/07/20 SURGEON: NARGIS ARELLANO MD DATE OF OPERATION: 01/09/2020 PREOPERATIVE DIAGNOSES: Disc herniation L5-S1, right with right S1 radiculopathy. POSTOPERATIVE DIAGNOSES: Disc herniation L5-S1, right with right S1 radiculopathy. PROCEDURES: Lumbar laminotomy, medial facetectomy and foraminotomy L5-S1 right with METRx retractor, discectomy. SURGEON: Nargis Arellano MD DESCRIPTION OF TECHNIQUE: After induction of general endotracheal anesthesia, the patient was rolled prone on the Abdiaziz frame. Lumbar spine was prepped and draped in usual sterile fashion. Fluoroscopic x-ray and spinal needle localized the L5-S1 interspace on the right side. A series of dilators were used to advance a METRx retractor to the L5-S1 interspace on the right. Level was confirmed with fluoroscopic x-ray. A microscope and Mid[employer] Antoine drill were used to perform laminotomy, medial facetectomy and foraminotomy L5-S1 on the right. Hypertrophied ligamentum flavum was removed with Cloward rongeurs. Following this, there was an obvious free fragment disc herniation within the axilla of the right S1 nerve root. Disc material was removed with pituitary rongeurs. Additional material was removed from the disc space. Following this, the S1 nerve root was decompressed well. Meticulous hemostasis was maintained throughout the wound. Wound was irrigated with copious amounts of Ancef irrigant solution. The fascia was closed with 2-0 Vicryl suture, the subdermal layer was closed with 3-0 Vicryl suture. The skin was reapproximated with nita. Sterile dressings were applied to the wounds. The patient was awakened in good condition and taken to recovery. All counts were reported to be correct. Estimated blood loss was minimal. TRANSINT:[id number] Voice Confirmation ID: [id number] DOCUMENT ID: [id number] NARGIS ARELLANO MD at 1050 CC: [id number] DICTATION DATE: 01/13/20 0859 CLEAN RICE GRADER AND REEL TENDER: 01/13/20 1526 DIS IN 01/10/20 [place] [id number] [facility] [place] [address]
== END 2020-01-10 13:30 | disposition home or self-care (01) | DRG 520 ==
LOC: D.MS 17:07 → D.SDCHOLD 17:07 → UNDOADMIN 17:07 → D.MS 17:14 → D.SDCHOLD 17:14 → D.MS 01-10 13:30 → D.M2 01-13 11:30
PROVIDERS: Anesthesiology; Neurological Surgery; ADMIT Emergency Medicine; ATTEND Emergency Medicine
PROC: 0SB40ZZ Excision of Lumbosacral Disc, Open Approach (ICD-10-PCS; principal; 2020-01-09 12:15)
DX: M51.17 Intervertebral disc disorders with radiculopathy, lumbosacral region (principal); J43.9 Emphysema, unspecified; K21.9 Gastro-esophageal reflux disease without esophagitis; Z78.0 Asymptomatic menopausal state; F41.8 Other specified anxiety disorders; M54.30 Sciatica, unspecified side

== ENCOUNTER 2020-05-06 14:29 | Emergency (ER) | payer MEDICAID ==
[~2020-05-06] VITALS: Ht 144.8 cm; Wt 62.3 kg
[~2020-05-06 14:29] MED LIST changes: +HYDROCODON-ACE1 EA10 PO
[2020-05-06 14:41] VITALS: Ht 144.8 cm; Wt 62.3 kg
[2020-05-06 15:30] LABS: BASOPHILS 0.9 % (0-2); EOSINOPHILS 11.9 % (0-7); HEMATOCRIT 37.1 % (36.0-48.0); HEMOGLOBIN 11.8 g/dL (12-16); IMMATURE GRANULOCYTES 0.2 % (0-5); LYMPHOCYTES 28.2 % (15-50); MCH 28.5 pg (26.0-34.0); MCHC 31.8 g/dL (31.0-37.0); MCV 89.6 fL (80.0-100.0); MEAN PLATELET VOLUME 9.2 fL (7.4-10.4); MONOCYTES 7.2 % (2-11); NEUTROPHILS 51.6 % (40-80); PLATELET COUNT 341 10x3/uL (130-400); RBC 4.14 10x6/uL (4.00-5.40); RDW 16.9 % (11.5-14.5); WBC 5.4 10x3/uL (4.8-10.8)
[2020-05-06 15:42] LABS: CALC OSMOLALITY 278 mosm/kg (275-300); CALCIUM 9.7 mg/dL (8.5-10.1); CARBON DIOXIDE 24.5 mmol/L (21.0-32.0); CHLORIDE - SERUM 105 mmol/L (98-107); CREATININE - SERUM 0.8 mg/dL (0.6-1.3); GLUCOSE 89 mg/dL (74-106); POTASSIUM - SERUM 3.7 mmol/L (3.5-5.1); SODIUM 140 mmol/L (136-145); UREA NITROGEN 16 mg/dL (7-18); eGFR NON AFRICAN AMERICAN 80 mL/min (90-120)
[2020-05-06 15:44] LABS: APTT 31.2 SECONDS (22.8-39.4); INR 0.92 (0.85-1.17); PROTIME 12.3 SECONDS (11.6-15.0)
[2020-05-06 15:45] LABS: D-DIMER-QUANTITATIVE 0.49 ug/mLFEU (0.20-0.54)
[2020-05-06 15:58] LABS: ALBUMIN 3.9 g/dL (3.4-5.0); ALKALINE PHOSPHATASE 81 U/L (30-120); ALT (SGPT) 27 U/L (10-68); BILIRUBIN - TOTAL 0.33 mg/dL (0.2-1.3); CKMB 3.9 U/L (0.0-3.6); CREATINE KINASE 383 UL (21-215); PRO BNP 81 pg/mL (0-125); PROTEIN - SERUM 7.4 g/dL (6.4-8.2)
[2020-05-06 15:59] LABS: TROPONIN-I < 0.017 ng/mL (0.000-0.060)
[2020-05-06] MEDS ORDERED: ALBUTEROL SULF8.5 GM INH (16:53)
[2020-05-06] MEDS ORDERED: STERAPRED DS 1210 MG PO (16:53)
[2020-05-06] MEDS ORDERED: TYLENOL W/CODEI1 TAB PO (16:53)
[2020-05-06 17:04] VITALS: BP 125/70
== END 2020-05-06 17:04 | disposition home or self-care (01) ==
LOC: D.ER 14:29
PROVIDERS: Family Medicine
DX: J44.0 Chronic obstructive pulmonary disease with (acute) lower respiratory infection (principal); K21.9 Gastro-esophageal reflux disease without esophagitis; R05 Cough